=== PATIENT | female | born 1935 | race Caucasian/White ===

== ENCOUNTER 2016-08-26 15:37 | Emergency (ER) | payer MEDICARE, OTHER ==
[2016-08-26 18:16] LABS: HEMOGLOBIN 12.8 gm/dl (12.3-15.3); RED BLOOD COUNT 4.29 M/UL (4.00-5.10); WHITE BLOOD COUNT 6.6 K/UL (4.5-11.0)
== END 2016-08-26 21:22 | disposition home or self-care (01) ==
LOC: ER1 15:37
PROVIDERS: Emergency Medicine
DX: K80.20 Calculus of gallbladder without cholecystitis without obstruction (principal); R42 Dizziness and giddiness
CPT/HCPCS: 36415; 71010; 80053; 82550; 82553; 83874; 84484; 85025; 96374; 99284; J2405; J7040

== ENCOUNTER 2016-08-30 18:35 | Emergency (ER) | payer MEDICARE, OTHER | END 2016-08-30 21:30 | disposition left against medical advice (07) | LOC: ER1 18:35 | DX: Z53.21 Procedure and treatment not carried out due to patient leaving prior to being seen by health care provider (principal) ==

== ENCOUNTER 2016-10-31 13:00 | Emergency (ER) | payer MEDICARE, OTHER ==
[2016-10-31 15:32] LABS: HEMOGLOBIN 13.2 gm/dl (12.3-15.3); RED BLOOD COUNT 4.37 M/UL (4.00-5.10); WHITE BLOOD COUNT 6.1 K/UL (4.5-11.0)
[2016-10-31 16:08] LABS: BUN/CREATININE RATIO 20 (0-10)
== END 2016-10-31 19:00 | disposition home or self-care (01) ==
LOC: ER1 13:00
PROVIDERS: Preventive Medicine Occupational Medicine
DX: R05 Cough (principal); R06.02 Shortness of breath; I25.10 Atherosclerotic heart disease of native coronary artery without angina pectoris; J45.909 Unspecified asthma, uncomplicated; Z88.2 Allergy status to sulfonamides
CPT/HCPCS: 36415; 71020; 80053; 83880; 85025; 94664; 96361; 96374; 99285; J2930

== ENCOUNTER 2020-08-08 20:49 | Emergency (ER) | payer MEDICARE, OTHER ==
[2020-08-08 21:43] LABS: HEMOGLOBIN 13.1 gm/dl (12.3-15.3); RED BLOOD COUNT 4.12 M/UL (4.00-5.10); WHITE BLOOD COUNT 6.6 K/UL (4.5-11.0)
[2020-08-08 22:08] LABS: BUN/CREATININE RATIO 17 (0-10)
[2020-08-09] MEDS ORDERED: PREDNISONE50 MG PO (02:38)
[2020-08-09] MEDS ORDERED: ZITHROMAX250 MG PO (02:38)
== END 2020-08-09 02:58 | disposition home or self-care (01) ==
LOC: ER1 20:49
PROVIDERS: Emergency Medicine
DX: J44.1 Chronic obstructive pulmonary disease with (acute) exacerbation (principal); E11.9 Type 2 diabetes mellitus without complications; Z20.822 Contact with and (suspected) exposure to COVID-19; I10 Essential (primary) hypertension; E78.5 Hyperlipidemia, unspecified; Z88.8 Allergy status to other drugs, medicaments and biological substances
CPT/HCPCS: 0240U; 36600; 71045; 80053; 82550; 82553; 82803; 83735; 83874; 83880; 84484; 85025; 85379; 85610; 85730; 93005; 94664; 96365; 96375; 99285; J0696; J2930; Q9967

== ENCOUNTER 2021-04-23 10:22 | Inpatient (IN) | payer MEDICARE, OTHER ==
[~2021-04-23] VITALS: Ht 160 cm; Wt 72.6 kg
[~2021-04-23 10:22] MED LIST: BUMETANIDE1 MG PO; MEDROL4 MG PO; PREDNISONE50 MG PO; ZITHROMAX250 MG PO
[2021-04-23 11:51] LABS: HEMOGLOBIN 12.7 gm/dl (12.3-15.3); RED BLOOD COUNT 3.96 M/UL (4.00-5.10); WHITE BLOOD COUNT 14.2 K/UL (4.5-11.0)
[2021-04-23 12:05] LABS: BUN/CREATININE RATIO 26 (0-10)
[2021-04-23] MEDS ORDERED: ARTHRITIS PAIN100 GM TOP (13:40)
[2021-04-23] MEDS ORDERED: NABUMETONE500 MG PO (13:40)
[2021-04-23] MEDS ORDERED: ASPIRIN EC81 MG PO (13:41)
[2021-04-23] MEDS ORDERED: AMLODIPINE BESY10 MG PO (13:41)
[2021-04-23] MEDS ORDERED: ROPINIROLE HCL1 MG PO (13:41)
[2021-04-23] MEDS ORDERED: ASCORBIC ACID500 MG PO (13:42)
[2021-04-23] MEDS ORDERED: ATORVASTATIN CA20 MG PO (13:42)
[2021-04-23] MEDS ORDERED: LOSARTAN POTASS50 MG PO (13:42)
[2021-04-23] MEDS ORDERED: DONEPEZIL HCL5 MG PO (13:43)
[2021-04-23] MEDS ORDERED: FERROUS SULFAT325 MG PO (13:44)
[2021-04-23] MEDS ORDERED: DRISDOL1250 MCG PO (13:44)
[2021-04-23] MEDS ORDERED: FUROSEMIDE20 MG PO (13:44)
[2021-04-23] MEDS ORDERED: METOPROLOL SUCC50 MG PO (13:45)
[2021-04-23] MEDS ORDERED: METFORMIN HCL500 MG PO (13:45)
[2021-04-23] MEDS ORDERED: MECLIZINE HCL25 MG PO (13:45)
[2021-04-23] MEDS ORDERED: OXYBUTYNIN CHLOR5 M1 PO (13:46)
[2021-04-23] MEDS ORDERED: PYRIDOSTIGMINE60 MG PO (13:47)
[2021-04-23] MEDS ORDERED: MAGNESIUM OXID400 M1 PO (13:47)
[2021-04-23] MEDS ORDERED: POTASSIUM CHLO10 ME1 PO (13:47)
[2021-04-23] MEDS ORDERED: DAILY VALUE1 EACH PO (13:48)
[2021-04-24 06:36] LABS: WHITE BLOOD COUNT 12.3 K/UL (4.5-11.0)
[2021-04-24 06:37] LABS: HEMOGLOBIN 10.7 gm/dl (12.3-15.3); RED BLOOD COUNT 3.4 M/UL (4.00-5.10)
[2021-04-27 06:57] LABS: HEMOGLOBIN 11.2 gm/dl (12.3-15.3); RED BLOOD COUNT 3.59 M/UL (4.00-5.10); WHITE BLOOD COUNT 7.8 K/UL (4.5-11.0)
[2021-04-27 07:17] LABS: BUN/CREATININE RATIO 41 (0-10)
[2021-04-28 08:39] LABS: BUN/CREATININE RATIO 43 (0-10)
[2021-04-28] MEDS ORDERED: MEDROL TAB 4 MG4 MG PO (17:34)
[2021-04-28] MEDS ORDERED: INVANZ (17:36)
[2021-04-29 07:46] LABS: HEMOGLOBIN 11.3 gm/dl (12.3-15.3); RED BLOOD COUNT 3.69 M/UL (4.00-5.10); WHITE BLOOD COUNT 9.2 K/UL (4.5-11.0)
[2021-04-29 08:12] LABS: BUN/CREATININE RATIO 40 (0-10)
[2021-04-29] MEDS ORDERED: PROAIR HFA8.5 GM INH (09:53)
== END 2021-04-29 14:43 | DRG 871 ==
LOC: ER1 10:22 → MED SURG 4 14:12 → CDU 14:12 → MED SURG 4 15:55
PROVIDERS: Internal Medicine; Nurse Practitioner; Physician Assistant Medical; ADMIT Emergency Medicine
PROC: 3E0333Z Introduction of Anti-inflammatory into Peripheral Vein, Percutaneous Approach (ICD-10-PCS; principal; 2021-04-23)
PROC: B24BZZZ Ultrasonography of Heart with Aorta (ICD-10-PCS; 2021-04-25)
DX: A41.9 Sepsis, unspecified organism (principal); J96.01 Acute respiratory failure with hypoxia; J18.9 Pneumonia, unspecified organism; I50.33 Acute on chronic diastolic (congestive) heart failure; Z20.822 Contact with and (suspected) exposure to COVID-19; J44.1 Chronic obstructive pulmonary disease with (acute) exacerbation; B96.20 Unspecified Escherichia coli [E. coli] as the cause of diseases classified elsewhere; N39.0 Urinary tract infection, site not specified; I13.0 Hypertensive heart and chronic kidney disease with heart failure and stage 1 through stage 4 chronic kidney disease, or unspecified chronic kidney disease; J44.0 Chronic obstructive pulmonary disease with (acute) lower respiratory infection; E87.70 Fluid overload, unspecified; E78.5 Hyperlipidemia, unspecified; E11.22 Type 2 diabetes mellitus with diabetic chronic kidney disease; R65.20 Severe sepsis without septic shock; I27.20 Pulmonary hypertension, unspecified; E11.65 Type 2 diabetes mellitus with hyperglycemia; T38.0X5A Adverse effect of glucocorticoids and synthetic analogues, initial encounter; G70.00 Myasthenia gravis without (acute) exacerbation; N18.9 Chronic kidney disease, unspecified; I08.1 Rheumatic disorders of both mitral and tricuspid valves; R53.81 Other malaise; Z79.82 Long term (current) use of aspirin; Z79.4 Long term (current) use of insulin; Z90.49 Acquired absence of other specified parts of digestive tract; Z88.2 Allergy status to sulfonamides; Z82.49 Family history of ischemic heart disease and other diseases of the circulatory system; I25.2 Old myocardial infarction; Z99.81 Dependence on supplemental oxygen
CPT/HCPCS: ECHO; 36415; 36600; 71045; 80048; 80053; 81001; 82550; 82553; 82803; 82962; 83540; 83550; 83605; 83735; 83874; 83880; 84484; 85025; 85027; 85379; 85610; 85652; 85730; 86140; 87040; 87077; 87086; 87186; 93005; 93306; 94640; 94664; 94760; 96374; 96375; 97161; 97164; 99285; J0456; J0696; J1100; J1335; J1650; J1940; J2405; J2920; J7030; J7050; Q9967; U0002